=== PATIENT | female | born 1980 | race Caucasian/White ===

== ENCOUNTER 2019-09-01 07:25 | Emergency (ER) | payer OTHER ==
[2019-09-01] MEDS ORDERED: IBUPROFEN 400 MG TAB ONE (08:01)
[2019-09-01 08:13] LABS: Urine Blood TRACE (NEG); Urine Glucose NEGATIVE (NEG); Urine Protein NEGATIVE (NEG); Urine Specific Gravity 1.025 (1.005-1.030)
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
[2019-09-01 09:49] VITALS: BP 114/80; TEMP 97.5; O2SAT 100
[2019-09-01 10:10] LABS: Barbiturates NEGATIVE (NEGATIVE); Benzodiazepines NEGATIVE (NEGATIVE); Cocaine NEGATIVE (NEGATIVE); METHAMPHETAM POSITIVE (NEGATIVE); Methadone NEGATIVE (NEGATIVE); Opiates NEGATIVE (NEGATIVE); Phencyclidine NEGATIVE (NEGATIVE); THC Cannibis NEGATIVE (NEGATIVE)
[2019-09-01 10:21] LABS: Urine Bacteria <20 /HPF (<20); Urine Culture Reflex Order REFLEXED; Urine Mucus 1+ /HPF (NONE SEEN); Urine RBC <5 /HPF (NONE SEEN)
== END 2019-09-01 09:51 | disposition home or self-care (01) ==
LOC: ER 07:25
DX: S16.1XXA Strain of muscle, fascia and tendon at neck level, initial encounter (principal); S29.012A Strain of muscle and tendon of back wall of thorax, initial encounter; V43.52XA Car driver injured in collision with other type car in traffic accident, initial encounter; Y93.89 Activity, other specified; Y92.410 Unspecified street and highway as the place of occurrence of the external cause; K80.20 Calculus of gallbladder without cholecystitis without obstruction; F90.9 Attention-deficit hyperactivity disorder, unspecified type
CPT/HCPCS: 72070; 72100; 72125; 80307; 81003; 81015; 81025; 87086; 87088; 99284